=== PATIENT | female | born 1985 | race Hispanic/Latino ===

== ENCOUNTER 2018-09-28 03:34 | Emergency (ER) | payer BC, SELFPAY ==
[2018-09-28] MEDS ORDERED: Ketorolac Tromethamine 30 MG/ML VIAL ONE (04:01)
[2018-09-28] MEDS ORDERED: methylPREDNISolone Sod Succ/PF 125 MG/2 ML VIAL ONE (04:01)
== END 2018-09-28 05:10 | disposition home or self-care (01) ==
LOC: ERS 03:34
DX: L50.9 Urticaria, unspecified (principal); I10 Essential (primary) hypertension
CPT/HCPCS: 96361; 96374; 96375; J1885; J2930

== ENCOUNTER 2019-05-06 03:06 | Inpatient (IN) | payer MEDICAID, OTHER, SELFPAY ==
[2019-05-06 03:35] VITALS: BMI 35.2
--- NOTE | 2019-05-06 04:05 | PDOC.FPROB ---
FMR OB H&P: HPI - History of Present Illness Chief Complaint: Vaginal Fluid, ROM Indentification: at 35.3 weeks History of Present Illness: Pt is a 33 yo at 35.3 weeks, MARIE 06/07/19, unsure of dating as we do not have records from [facility] who presents for gush of vaginal fluids with bloody streaking at 0200 05/06/19. The previous day she began experiencing pelvic pressure in intermittent fashion. She thought the pain would recede on it's own. She does not have a group b test at this time. Pt was late to care at [facility]. She denies any OB history complicating this , STI's, or complications during her previous pregnancies. Her previous pregnancies were . [facility] - [place] FMR OB H&P: Current - Care : 4 Para: 2011 Gestational age: 35.3 Due date: 06/07/19 Dating Criteria: Unknown Course/Complications: Denies - OB Labs Blood type: unknown RH: unknown Antibody Screen: unknown HIV: unknown RPR: unknown HepBsAg: unknown Gonorrhea: unknown Chlamydia: unknown GBS: unknown FMR OB H&P: History - Past Medical History PMH: Denies - OB History OB History: Previous pregnancies delivered via . Denies complications. - MANAGER OF DISTRIBUTION History MANAGER OF DISTRIBUTION History: Denies - Surgical History Sx History: Cholecystectomy - Social History Social History: Denies alcohol, tobacco, drugs - Family History Family History: non-contributory FMR OB H&P: Medications - Current Home Medications: Medication Instructions Recorded Confirmed Type HYDROcodone Bit/APAP 5/325 [[place]] 1 - 2 tab PO Q6HR PRN 07/08/13 07/08/13 History Allergies/Adverse Reactions: Allergies Allergy/AdvReac Type Severity Reaction Status Date / Time No Known Allergies Allergy Verified 05/06/19 03:31 FMR OB H&P: ROS - Review of Systems General: denies: fever/chills, weight/appetite/sleep changes Eyes: denies: vision changes, floaters ENT: denies: nasal congestion, rhinorrhea Cardiovascular: denies: chest pain, palpitation, edema Respiratory: denies: cough, congestion, shortness of breath Gastrointestinal: denies: abdominal pain, nausea, vomiting, diarrhea, constipation Genitourinary (Female): reports: vaginal discharge, contractions, vaginal pressure. denies: incontinence, dysuria, hematuria, vaginal pain, vaginal bleeding Musculoskeletal: denies: pain, stiffness Neurologic: denies: numbness, syncope Integumentary: denies: itching, rash Psychological: denies: depression, anxiety FMR OB H&P: Vital Signs - Maternal Vital signs: Vital Signs - First Documented Temp Pulse Resp BP 98.5 F 82 18 134/80 05/06/19 03:13 05/06/19 03:13 05/06/19 03:13 05/06/19 03:13 - Heart Tones Baseline: 140 Variability: moderate Category: category 1 FMR OB H&P: Physical Exam - Physical Exam General: NAD, awake, alert and oriented HEENT: PERRLA, EOMI Neck: FROM, trachea midline Heart: RRR, normal S1/S2 General: CTAB, no respiratory distress, good air movement, no wheezing Abdomen: soft, gravid, bowel sound present Deviation from normal: mild tenderness to L quadrants, no rebound Neurological: cranial nerves II through XII intact, sensation to pain,touch and proprioception grossly normal Skin: no rash, capillary refill <2 seconds Lymphatic: no purpura, no petechia Psychiatric: intact recent and remote memory, good judgement and insight - Pelvic Exam SVE: 50/-3 Ramirez score: 3 Membranes: SROM FMR OB H&P: A/P - Problem List (1) Premature rupture of membranes Current Visit: Yes Status: Acute Code(s): O42.90 - ALEX ROM, 7TH0 BETW RUPT & ONST LABR, UNSP WEEKS OF GEST (2) Intrauterine Current Visit: Yes Status: Acute Code(s): Z34.90 - ENCNTR FOR SUPRVSN OF NORMAL , UNSP, UNSP TRIMESTER Discussion: Date/Time: 05/06/19 0404 Pt is a 33 yo at 35.3 wks, MARIE 06/07/19, unknown dating as we do not have records from [facility] who presents for spontaneous, rupture membranes at 0200. # Rupture of Membranes, IUP 50%/-3; Ramirez 3. FHT 140, moderate variability, no accelerations, category 1 strip, contractions q6min - mildly painful in pelvic region. Currently no signs of infection. Cephalic presentation. - start cytotec - start ampicillin 2 g x 1 then 6 hrs later ampicillin 1 g q6hr - steroids given - repeat check, monitor for fevers - get pt records from [facility] This H&P was discussed with Dr. Felipe who agrees with the above documentation and plan.
[2019-05-06 04:17] LABS: Amnisure Test RUPTURE DETECTED (No Rupture)
[2019-05-06 04:18] LABS: Amnisure Internal Control QC ACCEPTABLE (ACCEPTABLE)
[2019-05-06] MEDS ORDERED: Ibuprofen 800 MG TAB PO PRN (04:35)
[2019-05-06] MEDS ORDERED: hydrALAZINE 20 MG/ML VIAL SLOW IVP PRN ×2 (04:35→20:43)
[2019-05-06] MEDS ORDERED: Promethazine HCl 25 MG/ML VIAL IM PRN ×3 (04:35→19:06)
[2019-05-06] MEDS ORDERED: Lidocaine 1% (PF) 30 ML VIAL SC PRN (04:35)
[2019-05-06] MEDS ORDERED: Ondansetron PF 4 MG/2 ML Vial IVP PRN ×4 (04:35→20:43)
[2019-05-06] MEDS ORDERED: NS / Oxytocin 40 units/1000ml 1,000 ML IV PRN (04:35)
[2019-05-06] MEDS ORDERED: NS w/ Oxytocin 10 units 500 ML IV SCH ×2 (04:45)
[2019-05-06] MEDS ORDERED: Betamet Acet/Betamet Na Ph 30 MG/5 ML VIAL IM SCH ×2 (05:00→09:00)
[2019-05-06] MEDS ORDERED: Ampicillin 2 GM in Sodium Chloride 0.9% 100 ML IVPB SCH (05:00)
[2019-05-06] MEDS ORDERED: Misoprostol 100 MCG TAB VAG SCH (05:00)
[2019-05-06] MEDS: Lactated Ringer's 1,000 ML IV SCH ×2 (05:18→08:55)
[2019-05-06 05:23] LABS: Hemoglobin 11.3 g/dL (12.0-16.0); Mean Corpuscular HGB CONC 34.1 g/dL (32.0-36.0); Mean Corpuscular Volume 79.1 fL (78.0-98.0); Mean Platelet Volume 9.2 fL (7.4-10.4); Platelet Count 229 thou/uL (130-400); RBC Distribution Width 11.4 % (11.5-14.5); White Blood Cell (WBC) Count 11.4 thou/uL (4.8-10.8)
[2019-05-06] MEDS: Misoprostol 100 MCG TAB VAG SCH ×3 (05:51→21:40)
[2019-05-06 06:03] LABS: HBSAg Index 0.22 S/CO (0-0.99); Hep B Surf Ag Non-Reactive S/CO (NonReactive)
[2019-05-06 06:11] LABS: Syphilis Antibody Nonreactive (Nonreactive); Syphilis Antibody Index 0.03 S/CO (<1.00 Non-Reactive)
[2019-05-06] MEDS ORDERED: Butorphanol Tartrate 1 MG/ML VIAL ONE (07:43)
[2019-05-06] MEDS ORDERED: Butorphanol Tartrate 1 MG/ML VIAL SLOW IVP PRN (08:06)
--- NOTE | 2019-05-06 08:28 | PDOC.LDPN ---
Labor & Delivery Progress Note - Subjective Subjective: painful contractions (received one dose of stadol for pain. Watched epidural video) - Objective Abnormal vital signs: two severe range BPs back to back, 173/91, 168/91 General: breathing through contractions SVE: 3/50/-2, posterior, soft Dilation: 3 Effacement: 50% Station: -2 FHT: category 2, variability present (minimal) [place] contractions every: 2-4 min - Assessment (1) Intrauterine Code(s): Z34.90 - ENCNTR FOR SUPRVSN OF NORMAL , UNSP, UNSP TRIMESTER Current Visit: Yes Status: Acute (2) Premature rupture of membranes Code(s): O42.90 - ALEX ROM, 7TH0 BETW RUPT & ONST LABR, UNSP WEEKS OF GEST Current Visit: Yes Status: Acute Plan: continue plan of care, labor augmentation -: premature ROM - continue expectant mgmt - pt has made change w/ one dose of cytotec placed at 0530 - Ramirez score of 6 - pt does not desire epidural at this time. - - s/p one dose betamethasone, next dose tomorrow AM if needed Severe range BP - first episode this AM. Will treat w/ medicines. May be pain related. - encourage epidural GBS unknown, IUP - ampicillin started Late to [facility] - called [facility] for records, only had 1 appt at 25 wga.
[2019-05-06] MEDS ORDERED: Fentanyl 4 mcg/Bup 0.1% Cadd 100 ML ONE (08:46)
[2019-05-06] MEDS ORDERED: ePHEDrine/0.9% NaCl/PF SYRINGE 50 mg/10 ml SLOW IVP PRN (09:51)
[2019-05-06] MEDS ORDERED: Acetaminophen 325 MG TAB PO PRN (09:51)
[2019-05-06] MEDS ORDERED: diphenhydrAMINE 50 MG/ML VIAL IVP PRN ×2 (09:51→19:06)
[2019-05-06] MEDS ORDERED: Naloxone HCl 0.4 mg/ml Vial IVP PRN ×4 (09:51→19:06)
[2019-05-06] MEDS ORDERED: Lactated Ringer's 500 ML IV PRN (09:51)
[2019-05-06] MEDS ORDERED: Communication Order-Pharmacy FS SCH ×2 (10:00→19:15)
[2019-05-06] MEDS ORDERED: Fentanyl 4 mcg/Bupivacaine 0.1% Cassette 100 ML EPIDURAL SCH (10:00)
--- NOTE | 2019-05-06 10:44 | PDOC.BPN ---
- Brief Progress Note update from Nesha Koenig RN Checked pt as she was checking estes: essentially unchanged. Pt not luca as frequently. Notified Dr. Bocanegra, ordered pitocin. Second dose of ampicillin to be started.
[2019-05-06] MEDS: AMPicillin 1 GM in Sodium Chloride 0.9% 100 ML IVPB SCH ×2 (11:12→16:51)
--- NOTE | 2019-05-06 11:48 | PDOC.LDPN ---
Labor & Delivery Progress Note - Subjective Subjective: comfortable, no concerns - Objective Vital signs reviewed and normal: yes General: NAD, resting, breathing through contractions SVE: 3/50/-2, unchanged Dilation: 3 Effacement: 50% Station: -2 FHT: category 2, late decelerations (1 prolonged late deceleration of 4 minutes. ), variability present (moderate) [place] contractions every: 6 minutes Other exam findings: bloody show Resuscitative measures: maternal position change (HR increased w/ maternal on left side) - Assessment (1) Intrauterine Code(s): Z34.90 - ENCNTR FOR SUPRVSN OF NORMAL , UNSP, UNSP TRIMESTER Current Visit: Yes Status: Acute (2) Premature rupture of membranes Code(s): O42.90 - ALEX ROM, 7TH0 BETW RUPT & ONST LABR, UNSP WEEKS OF GEST Current Visit: Yes Status: Acute Plan: continue plan of care, resuscitative measures -: notified Dr. Bocanegra. Pitocin had not yet been started. Placed IUPC after prolonged decel. Otherwise, pt has had category 1 strip. Will monitor for next 10-20 minutes. If fetus well, will begin pitocin to increase contraction frequency.
[2019-05-06 13:29] LABS: HIV (1/2) Antibody/Antigen Non-Reactive (NonReactive); HIV 1/2 INDEX 0.64 S/CO (<1.00)
--- NOTE | 2019-05-06 16:16 | PDOC.LDPN ---
Labor & Delivery Progress Note - Subjective Subjective: comfortable, no concerns - Objective Vital signs reviewed and normal: yes General: NAD, resting SVE: soft, midposition Dilation: 4 Effacement: 75% Station: -2 FHT: category 1, variability present (moderate) [place] contractions every: 3-4 min Other exam findings: MVUs 200 AROM: bloody fluid Resuscitative measures: maternal oxygen, maternal position change - Assessment (1) Intrauterine Code(s): Z34.90 - ENCNTR FOR SUPRVSN OF NORMAL , UNSP, UNSP TRIMESTER Current Visit: Yes Status: Acute (2) Premature rupture of membranes Code(s): O42.90 - ALEX ROM, 7TH0 BETW RUPT & ONST LABR, UNSP WEEKS OF GEST Current Visit: Yes Status: Acute Plan: continue plan of care, pitocin for augmentation (continue pitocin at 2. Titrate up as fetus tolerates.), resuscitative measures -: continue expectant mgmt. epidural in place. Next check in 2 hours.
[2019-05-06] MEDS ORDERED: CEFAZOLIN 2 GM in Premix Bag 1 BAG IVPB SCH (17:45)
[2019-05-06] MEDS ORDERED: Bicitra 30 ML UDCUP PO SCH (17:45)
[2019-05-06] MEDS ORDERED: Azithromycin 500 MG in Sodium Chloride 0.9% 250 ML 250 ML IVPB SCH (17:45)
[2019-05-06] MEDS ORDERED: Bicitra 30 ML UDCUP ONE (17:55)
[2019-05-06] MEDS ORDERED: Oxytocin 10 UNITS/ML VIAL ONE ×2 (18:01→18:45)
[2019-05-06] MEDS ORDERED: MORPHINE 5 MG/10 ML PF VIAL ONE (18:26)
[2019-05-06] MEDS ORDERED: Dexamethasone 4 mg/ml Vial ONE (18:31)
[2019-05-06] MEDS ORDERED: Ondansetron PF 4 MG/2 ML Vial ONE (18:31)
--- NOTE | 2019-05-06 18:34 | PRG ---
DATE OF SERVICE: 05/06/2019 TIME OF SERVICE: 1740 hours. The patient continues to have fairly continuous runs of lates to early decelerations that do not respond well to resuscitative measures. They decline into the 110s to 120s and then return back to baseline. Fetus otherwise looks reassuring. MVUs are running in the 150s to 200 range. We are unable to increase Pitocin secondary to decelerations. Cervical exam was performed by myself, which revealed the cervix to be 4, 90, and -2, which is essentially unchanged over the last 4 hours. Considering the persistent bloody show, the non-reassuring heart rate tracing, and the resistance to cervical dilatation that has been noted, we will go ahead and proceed with primary section. We will administer appropriate antibiotic prophylaxis with Zithromax and Ancef and apply SCDs for DVT prophylaxis. Job ID: [id number]
[2019-05-06] MEDS ORDERED: Fentanyl 100 MCG/2 ML VIAL ONE (18:37)
[2019-05-06] MEDS ORDERED: Ketorolac Tromethamine 30 MG/ML VIAL ONE (18:58)
[2019-05-06 18:59] LABS: Actual Bicarbonate (HCO3a) 23.2 mEq/L (22-28); Base Excess (BEa) -6.3 mEq/L (-2.0 to +3.0)
[2019-05-06 19:01] LABS: Actual Bicarbonate (HCO3v) 23 mEq/L (22-28); Base Excess -5.9 mEq/L (-2.0 to +3.0)
[2019-05-06 19:03] LABS: pH (Cord, venous) 7.22 (7.32-7.43)
[2019-05-06] MEDS ORDERED: Naloxone HCl 0.4 mg/ml Vial IV PRN (19:06)
[2019-05-06] MEDS ORDERED: Ondansetron HCl/PF 4 MG/2 ML Vial IVP PRN (19:06)
[2019-05-06] MEDS ORDERED: L&D-Morphine 4 MG/ML VIAL SLOW IVP PRN (19:06)
[2019-05-06] MEDS ORDERED: Promethazine HCl 25 MG SUPP PR PRN (19:06)
[2019-05-06] MEDS ORDERED: HYDROmorphone 2 MG/ML VIAL SLOW IVP PRN (19:06)
[2019-05-06] MEDS ORDERED: Ketorolac Tromethamine 30 MG/ML VIAL IVP SCH (19:15)
[2019-05-06] MEDS ORDERED: Meperidine HCl/PF 25 MG/ML VIAL ONE ×2 (19:45→20:35)
[2019-05-06] MEDS: Meperidine HCl/PF 25 MG/ML VIAL SLOW IVP PRN ×2 (19:46→20:37)
[2019-05-06] MEDS: Ferrous Sulfate 325 MG TAB PO SCH (21:39)
[2019-05-06] MEDS ORDERED: Morphine 2 MG/ML SYRINGE SLOW IVP SCH (22:45)
[2019-05-06] MEDS: Docusate Calcium (SURFAK) 240 MG CAP PO SCH (22:56)
[2019-05-06] MEDS: Ibuprofen 800 MG TAB PO SCH (22:58)
[2019-05-06] MEDS: Morphine 2 MG/ML SYRINGE SLOW IVP PRN ×4 (23:01→23:36)
--- NOTE | 2019-05-07 01:10 | OP ---
DATE OF PROCEDURE: 05/06/2019 RESIDENT SURGEON: Dyan [place] MD, PGY-2. FLOOR AND WALL APPLIER LIQUID SURGEON: Ashok Frias MD, PGY-3. ATTENDING SURGEON: Larry Bocanegra MD PROCEDURES PERFORMED: Primary low transverse section for persistent non-reassuring heart tones. PREOPERATIVE DIAGNOSES: 1. prelabor, rupture of membranes. 2. Inadequate care. 3. GBS unknown. POSTOPERATIVE DIAGNOSES: 1. prelabor, rupture of membranes. 2. Inadequate care. 3. GBS unknown. 4. Placental abruption. ANESTHESIA: Spinal epidural. INDICATIONS: The patient is a 33-year-old, G4, P2-0-1-2 female at an estimated 35.3 weeks gestation, who presents for an urgent primary low transverse section, indicated for persistent non-reassuring heart tones. DESCRIPTION OF PROCEDURE: After risks, benefits, and alternatives were explained to the patient, she gave informed consent. Preoperative antibiotics included cefazolin 2 g IV. The patient was taken to the operating room and spinal anesthesia was initiated. She was placed in the supine position with a left tilt, prepped and draped in the usual sterile fashion. A Pfannenstiel incision was made with a scalpel and carried down to the level of the fascia, which was sharply nicked. The fascia was cut. The fascial cut was extended bilaterally with Nielsen scissors. The inferior and superior edge of the cut fascial edges were then bluntly dissected free. The recti were divided digitally and retracted manually. The peritoneum was entered bluntly and retracted manually. An Kenny O retractor was then placed and secured prior to making a uterine incision. A low transverse score was made with a scalpel and the uterus was entered in the midline with the scalpel. Bloody fluid was seen. The hysterotomy was extended manually. The was noted to be vertex that was easily delivered without any need for fundal pressure. Mouth and nares were bulb suctioned. Cord clamped and cut and grossly normal female was handed to the waiting nurse. Cord blood was obtained as well as a cord segment for a blood gas. Placenta was manually extracted and found to be intact with 3-vessel cord and sent for path. The uterus was closed with a running locking #1 Monocryl suture followed by a single horizontal mattress #1 Monocryl imbricating suture. Following this, hemostasis was noted. Abdomen was irrigated with saline, suctioned free of clots. The Kenny O was removed and the hysterotomy was again noted to be hemostatic. The fascia was closed with a running nonlocking 0 PDS suture. The subcutaneous tissue was irrigated and there were no free bleeders. The subcutaneous tissue was closed with four interrupted 2-0 plain sutures. The skin was approximated with cielo and a pressure dressing was placed. All counts were correct. The patient tolerated the procedure well, was taken to the recovery room in stable condition. ESTIMATED BLOOD LOSS: 611 mL. COMPLICATIONS: None. SPECIMENS: Cord blood, cord gas, cord segment, and placenta were sent to lab for blood type, blood gas, and pathologic analysis. FINDINGS: 1. Grossly normal female infant with Apgars of 8 & 9. 2. Grossly normal placenta with 3-vessel cord, sent for pathology. DRAINS: [place] to gravity draining clear urine. Job ID: [id number] MTDD
[2019-05-07] MEDS: Ibuprofen 800 MG TAB PO SCH ×3 (02:10→21:11)
[2019-05-07] MEDS: Ketorolac Tromethamine 30 MG/ML VIAL IVP PRN ×2 (02:11→08:46)
[2019-05-07 05:45] LABS: Hemoglobin 8.9 g/dL (12.0-16.0); Mean Corpuscular Hemoglobin 26.8 pg (27.0-31.0); Mean Corpuscular Volume 78.9 fL (78.0-98.0); Mean Platelet Volume 8.9 fL (7.4-10.4); Platelet Count 181 thou/uL (130-400); RBC Distribution Width 11.5 % (11.5-14.5); Red Blood Cell (RBC) Count 3.31 mill/uL (4.20-5.40); White Blood Cell (WBC) Count 16.8 thou/uL (4.8-10.8)
--- NOTE | 2019-05-07 07:02 | PDOC.PP ---
Post Progress Note Post Day #: 1 Subjective: 33YO who is PP day #1 s/p primary LTCS for NRFHTs @ 35.3 WGA. Patient reports she feels ok this AM. States she had pain when she has tried to move so plans to get PRN meds after she gets some food in her stomach. Has not yet ambulated or voided as estes is still in place. Passing gas but has not stooled yet. No N/V, dizziness, or SOB. Reports bleeding is less than a period. Has not passed any large clots. Says baby is doing well. PO intake tolerated: yes Flatus: yes Ambulation: no Vital Signs (12 hours) Temp Pulse Resp BP BP Pulse Ox 05/07/19 05:20 98.6 F 100 16 118/63 05/07/19 00:05 98.1 F 101 H 18 126/69 05/06/19 22:15 97.6 F 94 16 132/82 05/06/19 21:15 97.6 F 84 16 133/71 97 Weight Weight 81.647 kg - Physical Examination General: NAD Cardiovascular: no m/r/g, RRR Respiratory: clear to auscultation bilaterally, non-labored breathing Abdominal: + bowel sounds, lochia, no distention, appropriately TTP Fundus firm & at: umbilicus Extremities: negative homans (B) Skin: CS incision dry & intact, no rash Neurological: no gross focal deficits Psychiatric: A&Ox3, normal affect Result Diagrams: 05/07/19 05:27 Additional Labs: Post Labs Blood Type A POSITIVE 05/06/19 05:29 Hep Bs Antigen Non-Reactive S/CO (NonReactive) 05/06/19 05:13 (1) care following delivery Code(s): Z39.2 - ENCOUNTER FOR ROUTINE FOLLOW-UP Status: Acute (2) Acute blood loss anemia Code(s): D62 - ACUTE POSTHEMORRHAGIC ANEMIA Status: Acute (3) Late care Code(s): O09.30 - SUPRVSN OF PREG W INSUFFICIENT ANTENAT CARE, UNSP TRIMESTER Status: Acute (4) Premature rupture of membranes Code(s): O42.90 - ALEX ROM, 7TH0 BETW RUPT & ONST LABR, UNSP WEEKS OF GEST Status: Acute Qualifiers: PROM gestational age: -third trimester - Assessment/Plan 33YO who is PP day #1 s/p a primary LTCS @ an estimated 35.3 WGA for NRFHTs. 1. PP care s/p C/S: Tolerating PO. Will encourage ambulation today & remove estes. Continue current pain control regimen, PNVs, & supplemental iron. Continue routine PP care. 2. Acute blood loss anemia: Patient's Hgb dropped from 11.3 on admission to 8.9 this AM. Vitals have remained stable since surgery and she remains asymptomatic. Will continue to monitor vitals closely & transfuse PRN. Continue PNVs & supplemental iron. 3. PPROM: Aware, patient was admitted and induced but required urgent C/S delivery 2/2 NRFHTs. 4. Late to care: Aware, Urine and meconium drug screen pending. Will involve CM PRN based on results. Anticipate likely d/c home with baby w/o any issues. 5. GBS unknown: Patient was adequately treated with 2 doses of ampicillin but was ultimately delivered via C/S for reasons outlined above. Dispo: Will continue to monitor over the course of today with likely d/c home on 05/09/19 pending mom and infant's clinical course.
[2019-05-07] MEDS: Docusate Calcium (SURFAK) 240 MG CAP PO SCH (09:14)
[2019-05-07] MEDS: Prenatal Vitamin 1 TAB PO SCH (09:14)
[2019-05-07] MEDS: Simethicone Chewable 80 MG TAB PO PRN ×2 (09:15→21:13)
[2019-05-07] MEDS: HYDROcodone/Acetaminophen 5/325 mg Tablet PO PRN ×2 (09:15→19:45)
[2019-05-07] MEDS: Ferrous Sulfate 325 MG TAB PO SCH ×2 (09:16→21:12)
[2019-05-07] MEDS ORDERED: Adacel (T-DAP) 0.5 ML SYRINGE IM ONE (21:00)
[2019-05-08] MEDS: HYDROcodone/Acetaminophen 5/325 mg Tablet PO PRN ×4 (00:15→23:55)
[2019-05-08] MEDS: Docusate Calcium (SURFAK) 240 MG CAP PO SCH ×3 (00:16→20:40)
[2019-05-08] MEDS: Ibuprofen 800 MG TAB PO SCH ×3 (04:27→20:39)
[2019-05-08] MEDS: Simethicone Chewable 80 MG TAB PO PRN (04:27)
--- NOTE | 2019-05-08 04:59 | PDOC.PP ---
Post Progress Note Post Day #: 2 Subjective: Patient doing well this AM. Report she did have some pain overnight that required some extra doses of pain medicine. Notes increased pain when she cries. Says they are happy tears and denies feeling down or depressed. Is tolerating PO and voiding and passing flatus. No BM yet. Ambulating some in the room but does have pain with ambulation. No chest pain, SOB, vision changes or fever/chills. PO intake tolerated: yes Flatus: yes Ambulation: yes Vital Signs (12 hours) Temp Pulse Resp BP BP Pulse Ox 05/08/19 04:25 98.6 F 85 16 135/79 05/08/19 00:05 98.2 F 86 16 119/67 05/07/19 19:36 98.3 F 98 16 143/77 H 98 05/07/19 17:12 98.1 F 90 16 120/63 98 Weight Weight 81.647 kg - Physical Examination General: NAD Cardiovascular: no m/r/g, RRR Respiratory: clear to auscultation bilaterally, non-labored breathing Abdominal: + bowel sounds, lochia, no distention, appropriately TTP Fundus firm & at: umbilicus Extremities: negative homans (B) Skin: CS incision dry & intact, no rash Neurological: no gross focal deficits Psychiatric: A&Ox3, normal affect Result Diagrams: 05/07/19 05:27 Additional Labs: Post Labs Blood Type A POSITIVE 05/06/19 05:29 Hep Bs Antigen Non-Reactive S/CO (NonReactive) 05/06/19 05:13 (1) care following delivery Code(s): Z39.2 - ENCOUNTER FOR ROUTINE FOLLOW-UP Status: Acute (2) Acute blood loss anemia Code(s): D62 - ACUTE POSTHEMORRHAGIC ANEMIA Status: Acute (3) Late care Code(s): O09.30 - SUPRVSN OF PREG W INSUFFICIENT ANTENAT CARE, UNSP TRIMESTER Status: Acute (4) Premature rupture of membranes Code(s): O42.90 - ALEX ROM, 7TH0 BETW RUPT & ONST LABR, UNSP WEEKS OF GEST Status: Acute Qualifiers: PROM gestational age: -third trimester - Assessment/Plan 33YO who is PP day #1 s/p a primary LTCS @ an estimated 35.3 WGA for NRFHTs. 1. PP care s/p C/S: Tolerating PO. Passing gas & voiding normally but having some difficulty moving around 2/2 pain. Encouraged increased ambulation today. Continue current pain control regimen, PNVs, & supplemental iron. Continue routine PP care. 2. Acute blood loss anemia: Patient's Hgb dropped from 11.3 on admission to 8.9 yesterday AM w/ a QBL of 966mL since delivery. Vitals have remained stable since surgery and she remains asymptomatic. Will continue to monitor vitals closely continue PNVs & supplemental iron. 3. PPROM: Aware, patient was admitted and induced after having a + amnisure but required urgent C/S delivery 2/2 NRFHTs. 4. Late to care: Aware, Urine drug screen + for opiates but mom was given stadol before her epidural during induction. MDS pending. Will involve CM PRN based on results. Anticipate likely d/c home with baby w/o any issues. 5. GBS unknown: Patient was adequately treated with 2 doses of ampicillin but was ultimately delivered via C/S for reasons outlined above. 6. Elevated BP w/o diagnosis of gHTN or pre-e: 1 elevated BP since delivery at 143/77 @ ~ 19:37 on 05/07/19. No elevated BPs since. Patient asymptomatic. Will continue to monitor closely. Dispo: Will continue to monitor over the course of today with likely d/c home tomorrow pending mom and infant's clinical course. Addendum - Attending - Attending Attestation Date/Time: 05/10/19 2192 I personally evaluated the patient and discussed the management with Dr. [place]. I agree with the History, Examination, Assessment and Plan documented above with any addition or exceptions noted below.
[2019-05-08] MEDS: Prenatal Vitamin 1 TAB PO SCH (08:10)
[2019-05-08] MEDS: Ferrous Sulfate 325 MG TAB PO SCH ×2 (08:10→20:44)
[2019-05-09] MEDS: Ibuprofen 800 MG TAB PO SCH (04:59)
--- NOTE | 2019-05-09 07:09 | PDOC.PP ---
Post Progress Note Post Day #: 3 Subjective: Pain is well controlled, less bleeding than menses, ambulating well, tolerating PO without difficultly. PO intake tolerated: yes Flatus: yes Ambulation: yes Vital Signs (12 hours) Temp Pulse Resp BP BP Pulse Ox 05/08/19 23:50 98.4 F 75 18 138/81 05/08/19 20:30 98.4 F 79 18 114/74 99 Weight Weight 81.647 kg - Physical Examination General: NAD Cardiovascular: no m/r/g, RRR Respiratory: clear to auscultation bilaterally, non-labored breathing Abdominal: + bowel sounds, no distention, appropriately TTP Fundus firm & at: 2 cm below umbilicus Extremities: negative homans (B) Skin: CS incision dry & intact, no rash Neurological: no gross focal deficits Psychiatric: A&Ox3, normal affect Result Diagrams: 05/07/19 05:27 Additional Labs: Post Labs Blood Type A POSITIVE 05/06/19 05:29 Hep Bs Antigen Non-Reactive S/CO (NonReactive) 05/06/19 05:13 (1) Acute blood loss anemia Code(s): D62 - ACUTE POSTHEMORRHAGIC ANEMIA Status: Acute (2) Intrauterine Code(s): Z34.90 - ENCNTR FOR SUPRVSN OF NORMAL , UNSP, UNSP TRIMESTER Status: Acute (3) care following delivery Code(s): Z39.2 - ENCOUNTER FOR ROUTINE FOLLOW-UP Status: Acute - Assessment/Plan 33YO who is PP day #3 s/p a primary LTCS @ an estimated 35.3 WGA for NRFHTs. 1. PP care s/p C/S: w/o complications 2. Acute blood loss anemia: Patient's Hgb dropped from 11.3 on admission to 8.9 yesterday PPD1. BPs WNL, denies lightheadedness or syncope. 3. PPROM 4. Late to care: Aware, Urine drug screen + for opiates but mom was given stadol before her epidural during induction. MDS pending. Will involve CM PRN based on results. 5. GBS unknown: Patient was adequately treated with 2 doses of ampicillin 6. Elevated BP w/o diagnosis of gHTN or pre-e: resolved Dispo: d/c home today f/u in 2 weeks at [facility]
[2019-05-09] MEDS: HYDROcodone/Acetaminophen 5/325 mg Tablet PO PRN (08:38)
[2019-05-09] MEDS: Docusate Calcium (SURFAK) 240 MG CAP PO SCH (08:39)
[2019-05-09] MEDS: Ferrous Sulfate 325 MG TAB PO SCH (08:39)
[2019-05-09] MEDS: Prenatal Vitamin 1 TAB PO SCH (08:39)
[2019-05-09 09:06] VITALS: BP 131/72; TEMP 98
--- NOTE | 2019-05-10 04:52 | DIS ---
DATE OF ADMISSION: 05/06/2019 DATE OF DISCHARGE: 05/09/2019 RESIDENT: Dyan [place] MD DISCHARGE ATTENDING: Deborah Gastelum MD DISCHARGE DIAGNOSES: 1. but appropriate for gestational age viable female. 2. Hyperbilirubinemia of the . 3. Maternal history of inadequate care and GBS unknown status. 4. Delivery via primary low transverse section for non-reassuring heart tones. 5. Maternal history of premature rupture of the membranes. PROCEDURES: Phototherapy. HISTORY OF PRESENT ILLNESS: Baby girl represented the 35.3 week product delivered of a 33-year-old G4, P2-0-1-2. Blood type A positive. Chlamydia negative. GBS unknown, but treated with ampicillin x2 prior to delivery, GC negative, hepatitis B surface antigen negative, HIV negative, RPR negative, and rubella immune. Family history is noncontributory. The maternal history is positive for inadequate care and GBS status unknown. was complicated by prelabor rupture of membranes. Primary low-transverse section delivery was accomplished at 1829 on 05/06/[address] Dyan [place] and Dr. Ashok Frias with attending, Dr. Larry Bocanegra. Deep suction with the [place] was needed following delivery, but Apgars were 8 and 9 at 1 and 5 minutes respectively. PHYSICAL EXAMINATION: Weight 2.325 kg, length 17.52 inches, head circumference 34 cm. Physical exam was unremarkable. HOSPITAL COURSE: The infant experienced a mildly complicated hospital course, requiring just under 24 hours of phototherapy after a 36-hour total bilirubin level resulted on the morning of 05/08/2019 at 9.9 with the upper limit level for phototherapy being 11.7, given the patient's gestational age at . Phototherapy was therefore started at approximately 8:20 that morning and continued until approximately 7:00 a.m. the following morning, after an approximate 60 hours of life, total bilirubin level resulted back at 6.6, putting the patient at low risk for developing neurotoxicity from elevated bilirubin levels. Otherwise, the patient established feedings well, voided/stooled normally and passed all screenings and received all prophylaxis as indicated per protocol. Of note, the patient had a urine and meconium drug screen obtained due to the mom's inadequate care. The UDS was positive for opiates; however, the mother received opiates while laboring before she was taken back for section. Meconium drug screen was still pending on the date of discharge. DISPOSITION: 1. Discharged home on 05/09/2019 with the discharge weight of 2.196 kg. 2. Medications none. 3. Diet, breast milk and/or bottle ad azul. 4. Blood type A positive, Du[place] negative. 5. Hearing screen passed on 05/07/2019. 6. Hepatitis B vaccine given on 05/07/2019. 7. Discharge bilirubin 6.6 on 05/09/2019, placing the patient in low risk. 8. Follow up with [facility] physicians in 1 to 3 days. Job ID: [id number]
== END 2019-05-09 12:25 | disposition home or self-care (01) | DRG 786 ==
LOC: L&D/OP 03:06 → L&D 06:44 → 3SW 21:38
PROVIDERS: ADMIT Obstetrics & Gynecology; ATTEND Obstetrics & Gynecology
PROC: 10D00Z1 Extraction of Products of Conception, Low, Open Approach (ICD-10-PCS; principal; 2019-05-06)
PROC: 10H07YZ Insertion of Other Device into Products of Conception, Via Natural or Artificial Opening (ICD-10-PCS; 2019-05-06)
DX: O42.913 Preterm premature rupture of membranes, unspecified as to length of time between rupture and onset of labor, third trimester (principal); O45.93 Premature separation of placenta, unspecified, third trimester; D62 Acute posthemorrhagic anemia; O76 Abnormality in fetal heart rate and rhythm complicating labor and delivery; Z3A.35 35 weeks gestation of pregnancy; Z37.0 Single live birth; O90.81 Anemia of the puerperium; R03.0 Elevated blood-pressure reading, without diagnosis of hypertension
CPT/HCPCS: 36415; 51702; 82805; 84112; 85027; 86780; 86850; 86900; 86901; 87081; 87340; 87389; 88307; 99285; J0290; J0360; J0595; J0690; J0702; J1100; J1885; J2175; J2270; J2274; J2405; J2590; J3010; J3490